=== PATIENT | male | born 1980 | race Caucasian/White ===

== ENCOUNTER 2019-09-16 10:10 | Outpatient (CLI) | payer OTHER, SELFPAY ==
--- NOTE | 2019-09-16 | XR_ITS ---
WS: [id number] CHEST 2 VIEWS HISTORY: UPPER RESPIRATORY INFECTION COMPARISON: None available. Lungs: Scattered opacifications at the RIGHT lung base consistent with pneumonia. Otherwise lungs are clear. No pleural effusion or pneumothorax. Cardiac size: Normal. Mediastinum/Aorta: Normal mediastinum. Bones: Normal. XR/XR chest 2V* [id number] IMPRESSION: RIGHT lower lobe pneumonia.
== END 2019-09-16 10:11 | disposition home or self-care (01) ==
LOC: RADOUTREAD 10:16
PROVIDERS: Visit Provider Family Medicine
DX: J06.9 Acute upper respiratory infection, unspecified (principal); J18.9 Pneumonia, unspecified organism

== ENCOUNTER → 2021-09-11 09:28 | Outpatient (BNVA) | payer BC, SELFPAY | PROVIDERS: Visit Provider Family Medicine | DX: I10 Essential (primary) hypertension (principal); Z68.41 Body mass index [BMI] 40.0-44.9, adult; Z76.89 Persons encountering health services in other specified circumstances; Z86.39 Personal history of other endocrine, nutritional and metabolic disease; Z12.5 Encounter for screening for malignant neoplasm of prostate | CPT/HCPCS: 80053; 80061; 82652; 83036; 84153; 84443; 85025 ==

== ENCOUNTER → 2022-02-10 08:57 | Outpatient (BNVA) | payer BC, SELFPAY | PROVIDERS: Visit Provider Family Medicine | DX: J02.9 Acute pharyngitis, unspecified (principal); J30.9 Allergic rhinitis, unspecified | CPT/HCPCS: 87071; 87880 ==

== ENCOUNTER → 2022-02-12 13:35 | Outpatient (BNVA) | payer BC, SELFPAY | PROVIDERS: Visit Provider Family Medicine | DX: R50.9 Fever, unspecified (principal) | CPT/HCPCS: 87400; 87631; 87635 ==

== ENCOUNTER → 2022-05-13 11:28 | Outpatient (BNVA) | payer BC, SELFPAY | PROVIDERS: Visit Provider Family Medicine | DX: I10 Essential (primary) hypertension (principal); E78.2 Mixed hyperlipidemia; Z80.42 Family history of malignant neoplasm of prostate | CPT/HCPCS: 80053; 80061; 84153 ==

== ENCOUNTER 2022-09-17 06:53 | Outpatient (CLI) | payer BC, SELFPAY ==
--- NOTE | 2022-09-17 07:15 | US_ITS ---
WS: [id number] RIGHT UPPER QUADRANT ULTRASOUND HISTORY: Elevated LFT's. COMPARISON: None available. Liver: 17.0 cm in length. Mildly enlarged liver with coarse diffuse echotexture. There are areas of f atty sparing throughout the liver. No mass or bile duct dilatation. Portal Vein: Normal hepatopetal flow with monophasic waveform. Gallbladder: Normally distended gallbladder with no stones or wall thickening. CBD: 0.5 cm Pancreas: Normal size and echogenicity. Right kidney: 11.5 cm in length. Normal size and echogenicity. No hydronephrosis or mass. Aorta and IVC: Unremarkable abdominal aorta and IVC. No ascites. US/US abdomen limited [id number] IMPRESSION: 1. Mildly enlarged liver with hepatic steatosis and scattered areas of fatty s paring. 2. Negative gallbladder.
== END 2022-09-17 06:54 | disposition home or self-care (01) ==
LOC: RAD 06:57
PROVIDERS: PCP Family Medicine; Visit Provider Family Medicine
DX: R79.89 Other specified abnormal findings of blood chemistry (principal)
CPT/HCPCS: 76705

== ENCOUNTER 2023-01-07 08:42 | Day surgery (SDC) | payer BC, SELFPAY ==
[2023-01-05 10:05] VITALS: BMI 39.4
[2023-01-07 09:09] VITALS: BP 121/79; PULSE 86; RESP 16; TEMP 36.9; O2SAT 99
[2023-01-07] MEDS: sodium chloride 0.9% 1,000 ML 30 ML IV (09:20)
--- NOTE | 2023-01-07 10:46 | W.PM.OPSUD ---
Surgery/Procedure H&P Update DATE OF PROCEDURE: January 07, 2023 DATE H&P PERFORMED: 12/17/22 H&P UPDATE INFORMATION: I have reviewed H&P completed within last 30 days, I have examined patient prior to procedure and No changes to prior documentation PLANNED PROCEDURE: Operation Date: 01/07/23 10:15 Proposed Procedures p 13273 colon K92.1(Not Applicable) - Ha Sarabia DO
--- NOTE | 2023-01-07 10:51 | P.ANESASSM_ITS ---
Pre-Anesthetic Assessment Height/Weight: Height 1.68 m Weight 110.677 kg Temp Pulse Resp BP Pulse Ox O2 Del Method 98.4 F 86 16 121/79 99 Room Air 01/07/23 09:09 01/07/23 09:09 01/07/23 09:09 01/07/23 09:09 01/07/23 09:09 01/07/23 09:09 Preop Diagnosis: screening Operation Date: 01/07/23 10:15 Proposed Procedures p 46505 colon K92.1(Not Applicable) - Ha Sarabia DO Familial anesthetic complications: none Was Beta Alisa taken within 24 hours: N/A Was Clonidine taken within 24 hours: N/A Last intake: Intake Last Liquid Date 01/06/23 Last Liquid Time 22:00 Last Solid Date 01/05/23 Last Solid Time 18:00 Last Intake: 22:00 Social No alcohol and No tobacco Exam alert, oriented x 3, clear to auscultation bilaterally and regular rate & rhythm Airway Submandibular: within normal limits Cervical ROM: within normal limits Mallampati: Class II Dentition: full Pulmonary None reported CV/HEM Hypertension None reported Hepatic None reported GI Gastroesophageal Reflux Disease (OTC) Metabolic Morbid Obesity [facility] [place] Osteoarthritis/DJD Neuropsych Depression Anesthetic Plan ASA status: 2 Anesthesia: MAC Medications/Allergies Home Medications Medication Instructions Recorded Confirmed Last Taken Type aspirin 81 mg tablet,delayed 81 mg PO BEDTIME 11/26/22 01/07/23 01/05/23 History release (Adult Aspirin Regimen) bupropion HCl 150 mg 24 hr tablet, 150 mg PO QAM #30 tabs 12/01/22 01/07/23 01/06/23 Rx extended release (Wellbutrin XL) atorvastatin 80 mg tablet 80 mg PO BEDTIME 01/05/23 01/07/23 01/06/23 History lisinopril 20 mg tablet 20 mg PO BEDTIME 01/05/23 01/07/23 01/06/23 History loratadine 10 mg tablet 10 mg PO BEDTIME 01/05/23 01/05/23 01/05/23 History Allergies Allergy/AdvReac Type Severity Reaction Status Date / Time No Known Allergies Allergy Verified 12/17/22 12:59 Current Medications Generic Name Dose Route Start Last Admin Trade Name Freq PRN Reason Stop Dose Admin Sodium Chloride 1,000 mls @ 30 mls/hr 01/07/23 09:00 01/07/23 09:20 Sodium Chloride 0.9% IV 01/08/23 08:59 30 mls/hr .Q24H SAMSON Administration PFSH Anesthesia Medical History ADD (attention deficit disorder) History of high cholesterol Hx of psoriasis MRSA (methicillin resistant staph aureus) culture positive left knee Psychiatric care Surgical History History of ankle surgery due to staph infection 2 times Family History Grandfather Cancer prostate and throat on fathers side Father Cancer prostate Grandmother , mother side Hypertension Stroke Social History Smoking and tobacco status: never smoked Alcohol intake: current Alcohol intake frequency: holidays/special occasions only Alcohol type: beer Substance/Drug Use: never Adopted: Yes (age 2 by maternal grandparents) Lives independently: Yes Marital status: Number of children: 0 Number of grandchildren: 0 Highest education level completed: Associate Degree: Academic Program service: No Current occupational status: employed Current occupation: [employer] Department Current occupational exposures/hazards: Yes Pets and animals: Yes Pets & animals: dog(s) Current gender identity: Male Data Anesthesia Cardiac Studies: No Data to Display
[2023-01-07 11:12] VITALS: BP 115/81; PULSE 92; RESP 18; TEMP 36.4; O2SAT 96
[2023-01-07 11:17] VITALS: BP 117/73; PULSE 85; RESP 18; O2SAT 96
[2023-01-07 11:27] VITALS: BP 114/81; PULSE 85; RESP 18; O2SAT 95
--- NOTE | 2023-01-07 17:42 | ANE.PACU2 ---
Inpatient post-anesthesia follow up: Airway intact: Yes Vital signs: Temperature 97.5 F Pulse Rate 85 Respiratory Rate 18 Blood Pressure 114/81 Pulse Oximetry 95 Oxygen Delivery Me thod Room Air Oxygen Flow Rate Fraction of Inspir ed Oxygen Hydration adequate: Yes Nausea and vomiting: No Pain level: 2 Mental status: Baseline
== END 2023-01-07 11:42 | disposition home or self-care (01) ==
PROVIDERS: PCP Family Medicine; Visit Provider Surgery
PROC: 0DJD8ZZ Inspection of Lower Intestinal Tract, Via Natural or Artificial Opening Endoscopic (ICD-10-PCS; CPT 45378; principal; 2023-01-07 10:15)
DX: D12.5 Benign neoplasm of sigmoid colon (principal); K64.8 Other hemorrhoids
CPT/HCPCS: 45385; 88305; J2704; J7030

== ENCOUNTER → 2023-10-22 15:00 | Outpatient (BNVA) | payer BC, SELFPAY | PROVIDERS: PCP Family Medicine; Visit Provider Family Medicine | DX: Z12.5 Encounter for screening for malignant neoplasm of prostate (principal); F33.1 Major depressive disorder, recurrent, moderate; I10 Essential (primary) hypertension; E78.2 Mixed hyperlipidemia | CPT/HCPCS: 80053; 80061; 84443; 85025; G0103 ==

== ENCOUNTER → 2024-12-26 13:46 | Outpatient (BNVA) | payer BC, SELFPAY | PROVIDERS: PCP Family Medicine; Visit Provider Family Medicine | DX: Z12.5 Encounter for screening for malignant neoplasm of prostate (principal); I10 Essential (primary) hypertension | CPT/HCPCS: 80053; 80061; 84153; 84439; 84443; 85025 ==